=== PATIENT | male | born 1985 | race African-American/Black ===

== ENCOUNTER 2021-08-11 08:30 | Emergency (ER) | payer BC ==
--- NOTE | 2021-08-11 14:39 | CT ---
EXAMINATION TYPE: CT cervical spine wo con DATE OF EXAM: 08/11/2021 COMPARISON: None HISTORY: Lt arm numbness and weakness CT DLP: 413.[address] of the cervical spine was performed with bone and soft tissue window settings submitted . Coronal and sagittal reconstruction is obtained. There is normal alignment and prevertebral soft tissues. I do not see evidence for fracture or subluxation. C2-3, C3-4, C4-5 and C7-T1 are within normal limits. C5-6: Mild degenerative disc space narrowing. Right paracentral disc bulge with mild effacement ventr al thecal sac. No evidence for herniation or central stenosis. Foramina are patent bilaterally. C6-7: Moderate to severe degenerative disc space narrowing. Posterior disc bulge with encapsulating s pur greatest posterior centrally and to the left. There is moderate right-sided neural foraminal encr oachment at this level and moderate to severe left-sided neural foraminal encroachment at this level. No central stenosis although there is constriction of the thecal sac. IMPRESSION: 1. Disc bulging with hard disc at C6-C7 greatest paracentrally and to the left. Left greater than rig ht foraminal encroachment. Mild effacement ventral thecal sac.
== END 2021-08-11 12:48 | disposition home or self-care (01) ==
LOC: EC 08:30
DX: G54.2 Cervical root disorders, not elsewhere classified (principal); Z87.891 Personal history of nicotine dependence
CPT/HCPCS: 72125; 93005; 99284

== ENCOUNTER → 2021-08-23 | Outpatient (CLI) | payer BC ==
--- NOTE | 2021-08-23 10:00 | MR ---
EXAMINATION TYPE: MR cervical spine wo con DATE OF EXAM: 08/23/2021 COMPARISON: None HISTORY: Left arm weakness and numbness, neck pain. TECHNIQUE: Multiplanar, multisequence images of the cervical spine were acquired without contrast. The craniovertebral junction relationships and prevertebral soft tissues are normal. The cervical vertebral segments are normal in height and alignment and there is no fracture or sublux ation. The C5-6 level, there is mild disc space narrowing and spondylosis resulting in mild mass effect on t he ventral aspect sac. At the C6-7 level there is moderate degenerative disc disease with moderate di sc space narrowing, spondylosis and posterior disc bulge results in mild mass effect on the ventral a spect of thecal sac Secondary to degeneration of the uncovertebral joints there is moderate to severe neural foraminal st enosis at the C5-6 and C6-7 levels bilaterally. The cervical cord is normal in size and signal intensity. The paraspinal soft tissues are unremarkable. IMPRESSION: 1. Mild to moderate degenerative disc disease at C5-6 and C6-7 levels without focal disc herniation. 2. Normal cervical spinal cord without cervical stenosis. 3. Moderate to severe neural foraminal stenosis at the C5-6 and C6-7 levels bilaterally
== END | disposition home or self-care (01) ==
LOC: RADMRIMAIN 09:12
PROVIDERS: ATTEND Orthopaedic Surgery Orthopaedic Surgery of the Spine
DX: M50.322 Other cervical disc degeneration at C5-C6 level (principal); M50.323 Other cervical disc degeneration at C6-C7 level
CPT/HCPCS: 72141

== ENCOUNTER → 2021-10-06 | Outpatient (CLI) | payer BC ==
[2021-10-06 14:02] LABS: Appearance,Urine Clear (Clear); Bilirubin,Urine Negative (Negative); Blood,Urine Negative (Negative); Color,Urine Light Yellow; Glucose,Urine (UA) Negative (Negative); Ketones,Urine Negative (Negative); Leukocyte Esterase,Urine Negative (Negative); Nitrite,Urine Negative (Negative); PH, Urine 5.5 (5.0-8.0); Protein,Urine Negative (Negative); Specific Gravity,Urine 1.019 (1.001-1.035); Urobilinogen,Urine <2.0 mg/dL (<2.0)
[2021-10-06 18:36] LABS: African American GFR (CKD) 110.2 (60.0-200.0); Anion Gap 10.5 mmol/L (10.00-18.00); BUN/Creat Ratio 17.3 Ratio (12.00-20.00); Blood Urea Nitrogen 17.3 mg/dL (9.0-27.0); Carbon Dioxide 23.5 mmol/L (20.0-27.5); Non-African American GFR(CKD) 95.1 (60.0-200.0); Potassium 4.8 mmol/L (3.5-5.5)
[2021-10-06 18:53] LABS: Basophils # (A) 0.04 X 10*3/uL (0.00-0.10); Basophils % (A) 0.7 %; Eosinophils # (A) 0.16 X 10*3/uL (0.04-0.35); Eosinophils % (A) 2.7 %; HCT 46.4 % (39.6-50.0); HGB 14.7 g/dL (13.0-17.0); Immature Grans, Automated 0.2 %; Lymphocytes # (A) 1.74 X 10*3/uL (0.90-5.00); Lymphocytes % (A) 28.9 %; MCH 28.5 pg (27.0-32.0); MCHC 31.7 g/dL (32.0-37.0); MCV 90.1 fL (80.0-97.0); Mean Platelet Volume 12.8 fL (9.5-12.2); Monocytes # (A) 0.47 X 10*3/uL (0.20-1.00); Monocytes % (A) 7.8 %; NRBC Per 100 WBC 0 /100 WBCS (0.0-0.0); Neutrophils # (A) 3.61 X 10*3/uL (1.80-7.70); Neutrophils % (A) 59.7 %; Platelet Count 148 X 10*3/uL (140-440); RBC 5.15 X 10*6/uL (4.40-5.60); RDW 14.6 % (11.5-14.5); WBC 6.03 X 10*3/uL (4.50-10.00)
== END | disposition home or self-care (01) ==
LOC: LABWHC1 12:08
PROVIDERS: ATTEND Family Medicine
DX: Z01.818 Encounter for other preprocedural examination (principal); M48.02 Spinal stenosis, cervical region
CPT/HCPCS: 36415; 80048; 81003; 85025; 86850; 86900; 86901